=== PATIENT | female | born 1990 | race Caucasian/White ===

== ENCOUNTER 2017-10-23 17:25 | Emergency (ER) | payer BC | END 2017-10-23 17:47 | disposition left against medical advice (07) | LOC: JD.ED 17:25 | DX: Z53.21 Procedure and treatment not carried out due to patient leaving prior to being seen by health care provider (principal) ==

== ENCOUNTER 2018-08-29 15:28 | Inpatient (IN) | payer BC ==
[2018-08-29] MEDS ORDERED: Ondansetron 4 MG/2 ML SDV IVPUSH PRN ×2 (15:37→16:52)
[2018-08-29] MEDS ORDERED: Nalbuphine 20 MG/ML 1 ML Syringe IVPUSH PRN (15:37)
[2018-08-29] MEDS ORDERED: Sodium Chloride 0.9% 10 ML Syringe FLUSH PRN (15:37)
[2018-08-29] MEDS ORDERED: Oxytocin/Lactated Ringers 10 UNIT/1,000 ML BAG IV SCH ×2 (15:45)
--- NOTE | 2018-08-29 16:13 | PCM.LDHP ---
L&D History of Present Illness - General Date of Service: 08/29/18 Admit Problem/Dx: Patient Status Order with Admit Dx/Problem 08/29/18 15:38 Patient Status [ADT] Routine Admission Diagnosis/Problem Admission Diagnosis/Problem High risk Source of Information: Patient History Limitations: Reports: No Limitations - History of Present Illness Introduction:: Patient is a 28 y/o at 38 4/7 wks who presents for IOL due to findings of growth restriction on MFM US evaluation today. 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 Doing well currently. No significant contractions. 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: : 2 Para: 1 LMP (Approximate): Psychiatric History: Reports: Anxiety - Past Surgical History HEENT Surgical History: Reports: Myringotomy w Tube(s), Oral Surgery (tooth extraction) Social & Family History - Tobacco Use Smoking Status *Q: Current Every Day Smoker - Alcohol Use Alcohol Use History: No - Recreational Drug Use Recreational Drug Use: No H&P Review of Systems - Review of Systems: Review Of Systems: See Below General: Reports: No Symptoms Pulmonary: Reports: No Symptoms Cardiovascular: Reports: No Symptoms Gastrointestinal: Reports: No Symptoms Genitourinary: Reports: No Symptoms Musculoskeletal: Reports: No Symptoms Psychiatric: Reports: No Symptoms L&D Exam - Exam Exam: See Below - OB Specific Contraction Intensity: Mild Movement: Active Heart Tones: Present Heart Tones per Min: 135 Heart Rate (FHR) Variability: Moderate (6-25 bmp) Presentation: Vertex - Frankel Score Frankel Score Cervix Position: Anterior Frankel Score Consistency: Soft Frankel Score Effacement: >80% Fraknel Score Dilation: 3-4 cm Frankel Score 's Station: +1, +2 Frankel Score Total: 12 - Exam General: Alert, Oriented, Cooperative Lungs: Clear to Auscultation, Normal Respiratory Effort Cardiovascular: Regular Rate, Regular Rhythm GI/Abdominal Exam: Soft, Non-Tender Genitourinary: Normal external exam Extremities: Normal Inspection Skin: Warm, Dry, Intact - Patient Data Lab Results Last 24 hrs: Laboratory Results - last 24 hr 08/29/18 Range/Units 15:49 WBC 8.05 (3.98-10.04) K/mm3 RBC 4.53 (3.98-5.22) M/mm3 Hgb 13.6 (11.2-15.7) gm/L Hct 39.8 (34.1-44.9) % MCV 87.9 (79.4-94.8) fl MCH 30.0 (25.6-32.2) pg MCHC 34.2 (32.2-35.5) g/dl RDW Std Deviation 42.0 (36.4-46.3) fL Plt Count 232 (182-369) K/mm3 MPV 9.3 L (9.4-12.3) fl Result Diagrams: 08/29/18 15:49 - Problem List (1) 38 weeks gestation of SNOMED Code(s): 47413293 ICD Code: Z3A.38 - 38 WEEKS GESTATION OF Status: Acute Current Visit: Yes (2) IUGR (intrauterine growth restriction) SNOMED Code(s): 13991386 ICD Code: FAD2052 - Status: Acute Current Visit: Yes (3) complicated by subutex maintenance, antepartum SNOMED Code(s): 51300632 ICD Code: O99.320 - DRUG USE COMPLICATING , UNSPECIFIED TRIMESTER; F11.20 - OPIOID DEPENDENCE, UNCOMPLICATED Status: Acute Current Visit: Yes Problem List Initiated/Reviewed/Updated: Yes Orders Last 24hrs: Active Orders 24 hr Category Date Time Status Patient Status [ADT] Routine ADT 08/29/18 15:38 Active Activity as Tolerated [RC] PFP Care 08/29/18 15:38 Active Communication Order [RC] ASDIRECTED Care 08/29/18 15:38 Active Heart Tones [RC] ASDIRECTED Care 08/29/18 15:38 Active Non Stress Test [RC] PER UNIT ROUTINE Care 08/29/18 15:38 Active Notify Provider [RC] PFP Care 08/29/18 15:38 Active Notify Provider [RC] PRN Care 08/29/18 15:38 Active Peripheral IV Care [RC] . DIRECTED Care 08/29/18 15:38 Active Vital Signs [RC] PER UNIT ROUTINE Care 08/29/18 15:38 Active Regular Diet [DIET] Diet 08/29/18 Dinner Active RAPID PLASMA REAGIN,RPR [CHEM] Routine Lab 08/29/18 15:49 Received TYPE AND SCREEN [BBK] Stat Lab 08/29/18 15:49 Received Lactated Ringers [Ringers, Lactated] 1,000 ml Med 08/29/18 15:45 Pending IV ASDIRECTED Nalbuphine [Nubain] Med 08/29/18 15:37 Ordered 10 mg IVPUSH Q2H PRN Ondansetron [Zofran] Med 08/29/18 15:37 Ordered 4 mg IVPUSH Q4H PRN Oxytocin/Lactated Ringers [Pitocin in LR 10 Units/1,000 Med 08/29/18 15:45 Ordered ML] 10 unit in 1,000 ml IV .CONTINUOUS Oxytocin/Lactated Ringers [Pitocin in LR 10 Units/1,000 Med 08/29/18 15:45 Ordered ML] 10 unit in 1,000 ml IV TITRATE Sodium Chloride 0.9% [Saline Flush] Med 08/29/18 15:37 Ordered 10 ml FLUSH ASDIRECTED PRN Electronic Heart Tones Ext w TOCO [WOMSER] Oth 08/29/18 15:38 Ordered Routine Electronic Heart Tones Internal [WOMSER] Per Unit Oth 08/29/18 15:38 Ordered Routine Peripheral IV Insertion Adult [OM.PC] Routine Oth 08/29/18 15:38 Ordered Resuscitation Status Routine Resus Stat 08/29/18 15:37 Ordered Medication Orders Lactated Ringer's (Ringers, Lactated) 1,000 mls @ 100 mls/hr IV ASDIRECTED CHERYL Oxytocin/Lactated Ringer's (Pitocin In Lr 10 Units/1,000 Ml) 10 unit in 1,000 mls @ 500 mls/hr IV .CONTINUOUS CHERYL Oxytocin/Lactated Ringer's (Pitocin In Lr 10 Units/1,000 Ml) 10 unit in 1,000 mls @ 12 mls/hr IV TITRATE CHERYL; Protocol Nalbuphine HCl (Nubain) 10 mg IVPUSH Q2H PRN PRN Reason: pain Ondansetron HCl (Zofran) 4 mg IVPUSH Q4H PRN PRN Reason: Nausea/Vomiting Sodium Chloride (Saline Flush) 10 ml FLUSH ASDIRECTED PRN PRN Reason: Keep Vein Open Assessment/Plan Comment:: 28 y/o at 38 4/7 wks presents for IOL for IUGR * Labs * AROM and Pitocin for IOL * GBS negative, no need for antibiotics * Pain management per patient preference * Anticipate * Will make Peds team aware of maternal subutex use
[2018-08-29] MEDS: Lactated Ringers 1,000 ML IV SCH ×2 (16:38→17:36)
[2018-08-29] MEDS ORDERED: ePHEDrine 50 MG/ML SDV IVPUSH PRN (16:52)
[2018-08-29] MEDS ORDERED: diphenhydrAMINE 50 MG/ML SDV IVPUSH PRN (16:52)
[2018-08-29] MEDS ORDERED: fentaNYL 100 MCG/2 ML SDV EPIDUR PRN (16:52)
[2018-08-29] MEDS ORDERED: fentaNYL/Bupivacaine-NS 2 MCG/ML-0.125%/PF 100 ML Bag EP SCH ×2 (17:00→17:15)
[2018-08-29] MEDS ORDERED: Bupivacaine 0.25% 10 ML SDV ONE (18:00)
[2018-08-29] MEDS ORDERED: Lidocaine 1.5% with EPINEPHrine 1:200,000 5 ML Amp ONE (18:00)
--- NOTE | 2018-08-29 20:06 | PCM.PNLD ---
Labor Progress Note - VS & Meds Vital Signs: Last Vital Signs Temp 36.6 C 08/29/18 15:38 Pulse 98 08/29/18 15:38 Resp 18 08/29/18 15:38 BP 130/80 08/29/18 15:38 Pulse Ox 100 08/29/18 15:38 Active Medications: Current Medications Diphenhydramine HCl (Benadryl) 25 mg IVPUSH Q6H PRN PRN Reason: Pruritis Ephedrine Sulfate (Ephedrine Sulfate) 5 mg IVPUSH ASDIRECTED PRN PRN Reason: Hypotension Fentanyl (Sublimaze) 100 mcg EPIDUR Q3H PRN PRN Reason: Pain Last Admin: 08/29/18 17:31 Dose: 100 mcg Fentanyl/Bupivacaine HCl (Bmwrcdha-Ezruu-Vg 2 Mcg/Ml-0.125%) 100 ml EP ASDIRECTED CHERYL Last Admin: 08/29/18 17:31 Dose: 100 ml Lactated Ringer's (Ringers, Lactated) 1,000 mls @ 100 mls/hr IV ASDIRECTED CHERYL Last Admin: 08/29/18 17:36 Dose: 100 mls/hr Oxytocin/Lactated Ringer's (Pitocin In Lr 10 Units/1,000 Ml) 10 unit in 1,000 mls @ 500 mls/hr IV .CONTINUOUS CHERYL Oxytocin/Lactated Ringer's (Pitocin In Lr 10 Units/1,000 Ml) 10 unit in 1,000 mls @ 12 mls/hr IV TITRATE CHERYL; Protocol Last Titration: 08/29/18 18:34 Dose: 4 munits/min, 24 mls/hr Nalbuphine HCl (Nubain) 10 mg IVPUSH Q2H PRN PRN Reason: pain Ondansetron HCl (Zofran) 4 mg IVPUSH Q4H PRN PRN Reason: Nausea/Vomiting Ondansetron HCl (Zofran) 4 mg IVPUSH ONETIME PRN PRN Reason: Nausea/Vomiting Sodium Chloride (Saline Flush) 10 ml FLUSH ASDIRECTED PRN PRN Reason: Keep Vein Open Discontinued Medications Fentanyl/Bupivacaine HCl (Afwvqcwr-Enbwu-Pl 2 Mcg/Ml-0.125%) 100 ml EP ASDIRECTED CHERYL - Uterine Contractions Uterine Monitoring Mode: External [place] Contraction Intensity: Moderate Uterine Resting Tone: Soft - Monitoring Monitor Mode: External Ultrasound Heart Rate (FHR) Baseline: 135 Heart Rate (FHR) Variability: Moderate (6-25 bmp) Accelerations: Present, 15x15 Decelerations: None Strip Review: Category I - Vaginal Exam Dilation (cm): 5 Effacement (Percent): 90 Station: 1 Cervical Position: Anterior - Labor Progress (Free Text) Labor Progress: Doing well. Comfortable with epidural. Pitocin at 4. Will continue to increase per protocol
[2018-08-29] MEDS ORDERED: Oxytocin 10 Units/1 ML SDV ONE (22:36)
[2018-08-29] MEDS ORDERED: Misoprostol 200 MCG Tab ONE (22:36)
[2018-08-29] MEDS ORDERED: ceFAZolin 1 GM Vial IM ONE (22:44)
[2018-08-29] MEDS ORDERED: Misoprostol 200 MCG Tab PO STA (22:44)
--- NOTE | 2018-08-29 22:47 | PCM.DEL ---
L & D Note - General Info Date of Service: 08/29/18 - Delivery Note Labor: Induced by ARM, Induced by Oxytocin Delivery Outcome: Livebirth Infant Delivery Method: Spontaneous Vaginal Delivery-Single Infant Delivery Mode: Spontaneous Presentation: Right Occiput Anterior (KEYONNA) Nuchal Cord: None Anesthesia Type: Epidural Amniotic Fluid Description: Clear Episiotomy Type: None Laceration: Periurethral Suture type: Vicryl Suture size: 3-0 Placenta: Intact, Manual Removal Cord: 3 Vessels Estimated Blood Loss: 350 : Bulb Syringe, Stimulated, Warmed, [place] Used, Warmer Used Delivery Comments (Free Text/Narrative):: Patient found to be complete and began pushing. With maternal pushing effort head delivered from an KEYONNA presentation. No nuchal cord present. With gentle downward traction the shoulder and body delivered. Infant placed on maternal abdomen. Cord clamped and cut. Cord blood obtained. Placenta given 30 minutes but did not show any sign of release. Pitocin discontinued ( had been started after delivery of infant) and hand inserted into the uterus to the level of the fundus. With care plane found between uterus and placenta. Adherent area noted at very top of fundus. This was able to be freed and placenta then removed. Inspection showed it to be intact and two further passes into the uterus confirmed no residual membranes or placenta tissue. During this process IV was lost. Patient given IM pitocin and buccal cytotec to aid in uterine tone. Also given dose of IM ancef. Inspection of the perineum showed a left periurethral tear which was repaired with a running 3-0 vicryl. - General Info Date of Service: 08/30/18 - Patient Data Vitals - Most Recent: Last Vital Signs Temp 36.6 C 08/29/18 15:38 Pulse 98 08/29/18 15:38 Resp 18 08/29/18 15:38 BP 130/80 08/29/18 15:38 Pulse Ox 100 08/29/18 15:38 Weight - Most Recent: 66.179 kg Lab Results Last 24 Hours: Laboratory Results - last 24 hr 08/29/18 08/29/18 Range/Units 15:49 15:49 WBC 8.05 (3.98-10.04) K/mm3 RBC 4.53 (3.98-5.22) M/mm3 Hgb 13.6 (11.2-15.7) gm/L Hct 39.8 (34.1-44.9) % MCV 87.9 (79.4-94.8) fl MCH 30.0 (25.6-32.2) pg MCHC 34.2 (32.2-35.5) g/dl RDW Std Deviation 42.0 (36.4-46.3) fL Plt Count 232 (182-369) K/mm3 MPV 9.3 L (9.4-12.3) fl Blood Type O POSITIVE Gel Antibody Screen Negative Med Orders - Current: Current Medications Cefazolin Sodium (Ancef) 1 gm IM ONETIME ONE Stop: 08/29/18 22:45 Diphenhydramine HCl (Benadryl) 25 mg IVPUSH Q6H PRN PRN Reason: Pruritis Ephedrine Sulfate (Ephedrine Sulfate) 5 mg IVPUSH ASDIRECTED PRN PRN Reason: Hypotension Fentanyl (Sublimaze) 100 mcg EPIDUR Q3H PRN PRN Reason: Pain Last Admin: 08/29/18 17:31 Dose: 100 mcg Fentanyl/Bupivacaine HCl (Rxkhgbfq-Jrhzg-Ss 2 Mcg/Ml-0.125%) 100 ml EP ASDIRECTED CHERYL Last Admin: 08/29/18 17:31 Dose: 100 ml Lactated Ringer's (Ringers, Lactated) 1,000 mls @ 100 mls/hr IV ASDIRECTED CHERYL Last Admin: 08/29/18 17:36 Dose: 100 mls/hr Oxytocin/Lactated Ringer's (Pitocin In Lr 10 Units/1,000 Ml) 10 unit in 1,000 mls @ 500 mls/hr IV .CONTINUOUS CHERYL Oxytocin/Lactated Ringer's (Pitocin In Lr 10 Units/1,000 Ml) 10 unit in 1,000 mls @ 12 mls/hr IV TITRATE CHERYL; Protocol Last Titration: 08/29/18 18:34 Dose: 4 munits/min, 24 mls/hr Misoprostol (Cytotec) 600 mcg PO NOW STA Stop: 08/29/18 22:45 Nalbuphine HCl (Nubain) 10 mg IVPUSH Q2H PRN PRN Reason: pain Ondansetron HCl (Zofran) 4 mg IVPUSH Q4H PRN PRN Reason: Nausea/Vomiting Ondansetron HCl (Zofran) 4 mg IVPUSH ONETIME PRN PRN Reason: Nausea/Vomiting Sodium Chloride (Saline Flush) 10 ml FLUSH ASDIRECTED PRN PRN Reason: Keep Vein Open Discontinued Medications Fentanyl/Bupivacaine HCl (Uriuspry-Gblqx-Pv 2 Mcg/Ml-0.125%) 100 ml EP ASDIRECTED CHERYL Misoprostol (Cytotec) Confirm Administered Dose 200 mcg .ROUTE .STK-MED ONE Stop: 08/29/18 22:37 Oxytocin (Pitocin) Confirm Administered Dose 10 unit .ROUTE .STK-MED ONE Stop: 08/29/18 22:37 - Problem List & Annotations (1) 38 weeks gestation of SNOMED Code(s): 11634421 Code(s): Z3A.38 - 38 WEEKS GESTATION OF Status: Acute Current Visit: Yes (2) IUGR (intrauterine growth restriction) SNOMED Code(s): 14537760 Code(s): LUH4847 - Status: Acute Current Visit: Yes (3) complicated by subutex maintenance, antepartum SNOMED Code(s): 57646400 Code(s): O99.320 - DRUG USE COMPLICATING , UNSPECIFIED TRIMESTER; F11.20 - OPIOID DEPENDENCE, UNCOMPLICATED Status: Acute Current Visit: Yes - Problem List Review Problem List Initiated/Reviewed/Updated: Yes - My Orders Last 24 Hours: My Active Orders 08/29/18 15:37 Nalbuphine [Nubain] 10 mg IVPUSH Q2H PRN Ondansetron [Zofran] 4 mg IVPUSH Q4H PRN Sodium Chloride 0.9% [Saline Flush] 10 ml FLUSH ASDIRECTED PRN Resuscitation Status Routine 08/29/18 15:38 Patient Status [ADT] Routine Activity as Tolerated [RC] PFP Communication Order [RC] ASDIRECTED Heart Tones [RC] ASDIRECTED Notify Provider [RC] PFP Notify Provider [RC] PRN Peripheral IV Care [RC] . DIRECTED Vital Signs [RC] PER UNIT ROUTINE Electronic Heart Tones Ext w TOCO [WOMSER] Routine Electronic Heart Tones Internal [WOMSER] Per Unit Routine Peripheral IV Insertion Adult [OM.PC] Routine 08/29/18 15:45 Lactated Ringers [Ringers, Lactated] 1,000 ml IV ASDIRECTED Oxytocin/Lactated Ringers [Pitocin in LR 10 Units/1,000 ML] 10 unit in 1,000 ml IV .CONTINUOUS Oxytocin/Lactated Ringers [Pitocin in LR 10 Units/1,000 ML] 10 unit in 1,000 ml IV TITRATE 08/29/18 15:49 RAPID PLASMA REAGIN,RPR [CHEM] Routine 08/29/18 22:44 ceFAZolin [Ancef] 1 gm IM ONETIME ONE miSOPROStol [Cytotec] 600 mcg PO NOW STA 08/29/18 Dinner Regular Diet [DIET] - Assessment Assessment:: 28 y/o G2 now P2002 PPD#0 from at 38 4/7 wks - Plan Plan:: * Routine cares * Breast feeding * Continue home subutex * Discharge home in 2 days
[2018-08-30] MEDS ORDERED: Benzocaine/Menthol 20%-0.5% Spray 56 GM Canister TOP PRN (00:29)
[2018-08-30] MEDS ORDERED: Witch Hazel Medicated Pads 100/Jar TOP PRN (00:29)
[2018-08-30] MEDS: Ibuprofen 600 MG Tab PO PRN ×3 (02:15→18:45)
[2018-08-30] MEDS ORDERED: Acetaminophen 325 MG Tab PO PRN (07:05)
--- NOTE | 2018-08-30 07:07 | PCM.PNPP ---
- General Info Date of Service: 08/30/18 Functional Status: Reports: Pain Controlled, Tolerating Diet, Ambulating, Urinating - Review of Systems General: Reports: No Symptoms Pulmonary: Reports: No Symptoms Cardiovascular: Reports: No Symptoms Gastrointestinal: Reports: No Symptoms Genitourinary: Reports: No Symptoms Musculoskeletal: Reports: No Symptoms Neurological: Reports: No Symptoms - General Info Date of Service: 08/30/18 - Patient Data Vital Signs - Most Recent: Last Vital Signs Temp 37.1 C 08/30/18 04:00 Pulse 68 08/30/18 04:00 Resp 15 08/30/18 04:00 BP 120/68 08/30/18 04:00 Pulse Ox 99 08/30/18 04:00 Weight - Most Recent: 66.179 kg Lab Results - Last 24 Hours: Laboratory Results - last 24 hr 08/29/18 08/29/18 Range/Units 15:49 15:49 WBC 8.05 (3.98-10.04) K/mm3 RBC 4.53 (3.98-5.22) M/mm3 Hgb 13.6 (11.2-15.7) gm/L Hct 39.8 (34.1-44.9) % MCV 87.9 (79.4-94.8) fl MCH 30.0 (25.6-32.2) pg MCHC 34.2 (32.2-35.5) g/dl RDW Std Deviation 42.0 (36.4-46.3) fL Plt Count 232 (182-369) K/mm3 MPV 9.3 L (9.4-12.3) fl Blood Type O POSITIVE Gel Antibody Screen Negative Med Orders - Current: Current Medications Acetaminophen (Tylenol) 650 mg PO Q4H PRN PRN Reason: Pain Benzocaine/Menthol (Dermoplast Pain Relief [place]) 0 gm TOP ASDIRECTED PRN PRN Reason: Pain Last Admin: 08/30/18 01:38 Dose: 1 applic Ibuprofen (Motrin) 600 mg PO Q4H PRN PRN Reason: Pain Last Admin: 08/30/18 02:15 Dose: 600 mg Witch Jayne (Tucks) 1 pad TOP ASDIRECTED PRN PRN Reason: Pain Last Admin: 08/30/18 01:38 Dose: 1 applic Discontinued Medications Cefazolin Sodium (Ancef) 1 gm IM ONETIME ONE Stop: 08/29/18 22:45 Last Admin: 08/30/18 01:36 Dose: 1 gm Diphenhydramine HCl (Benadryl) 25 mg IVPUSH Q6H PRN PRN Reason: Pruritis Ephedrine Sulfate (Ephedrine Sulfate) 5 mg IVPUSH ASDIRECTED PRN PRN Reason: Hypotension Fentanyl (Sublimaze) 100 mcg EPIDUR Q3H PRN PRN Reason: Pain Last Admin: 08/29/18 17:31 Dose: 100 mcg Fentanyl/Bupivacaine HCl (Ytfxyzfk-Kjuak-Go 2 Mcg/Ml-0.125%) 100 ml EP ASDIRECTED CHERYL Fentanyl/Bupivacaine HCl (Jjpniwdu-Gbdso-Yc 2 Mcg/Ml-0.125%) 100 ml EP ASDIRECTED CHERYL Last Admin: 08/29/18 17:31 Dose: 100 ml Lactated Ringer's (Ringers, Lactated) 1,000 mls @ 100 mls/hr IV ASDIRECTED CHERYL Last Admin: 08/29/18 17:36 Dose: 100 mls/hr Oxytocin/Lactated Ringer's (Pitocin In Lr 10 Units/1,000 Ml) 10 unit in 1,000 mls @ 500 mls/hr IV .CONTINUOUS CHERYL Oxytocin/Lactated Ringer's (Pitocin In Lr 10 Units/1,000 Ml) 10 unit in 1,000 mls @ 12 mls/hr IV TITRATE CHERYL; Protocol Last Titration: 08/29/18 18:34 Dose: 4 munits/min, 24 mls/hr Misoprostol (Cytotec) Confirm Administered Dose 200 mcg .ROUTE .STK-MED ONE Stop: 08/29/18 22:37 Misoprostol (Cytotec) 600 mcg PO NOW STA Stop: 08/29/18 22:45 Last Admin: 08/29/18 23:00 Dose: 600 mcg Nalbuphine HCl (Nubain) 10 mg IVPUSH Q2H PRN PRN Reason: pain Ondansetron HCl (Zofran) 4 mg IVPUSH Q4H PRN PRN Reason: Nausea/Vomiting Ondansetron HCl (Zofran) 4 mg IVPUSH ONETIME PRN PRN Reason: Nausea/Vomiting Oxytocin (Pitocin) Confirm Administered Dose 10 unit .ROUTE .STK-MED ONE Stop: 08/29/18 22:37 Last Admin: 08/29/18 23:00 Dose: 10 unit Sodium Chloride (Saline Flush) 10 ml FLUSH ASDIRECTED PRN PRN Reason: Keep Vein Open - Interaction Infant Disposition, : [place] to Nursery Feeding: Attempted ; Nursed Fair/Poor Support Person: - Recovery Exam Fundal Tone: Firm Fundal Level: 1 Fingerbreadths Below Umbilicus Fundal Placement: Midline Lochia Amount: Scant Perineum Description: Intact, Minimal Bruising/Swelling Episiotomy/Laceration: Approximated Bladder Status: Voiding Urinary Elimination: Voided - Exam General: Alert, Oriented, Cooperative GI/Abdominal Exam: Soft, Non-Tender Extremities: Normal Inspection Skin: Warm, Dry, Intact - Problem List & Annotations (1) 38 weeks gestation of SNOMED Code(s): 41740710 Code(s): Z3A.38 - 38 WEEKS GESTATION OF Status: Acute Current Visit: Yes (2) IUGR (intrauterine growth restriction) SNOMED Code(s): 14232909 Code(s): WZB8170 - Status: Acute Current Visit: Yes (3) complicated by subutex maintenance, antepartum SNOMED Code(s): 91962007 Code(s): O99.320 - DRUG USE COMPLICATING , UNSPECIFIED TRIMESTER; F11.20 - OPIOID DEPENDENCE, UNCOMPLICATED Status: Acute Current Visit: Yes (4) Vaginal delivery SNOMED Code(s): 086549003 Code(s): O80 - ENCOUNTER FOR FULL-TERM UNCOMPLICATED DELIVERY Status: Acute Current Visit: Yes (5) Retained placenta SNOMED Code(s): 398787146 Code(s): O73.0 - RETAINED PLACENTA WITHOUT HEMORRHAGE Status: Acute Current Visit: Yes Qualifiers: Retained placenta detail: complete placenta Qualified Code(s): O73.0 - Retained placenta without hemorrhage - Problem List Review Problem List Initiated/Reviewed/Updated: Yes - My Orders Last 24 Hours: My Active Orders 08/29/18 15:37 Resuscitation Status Routine 08/29/18 15:49 RAPID PLASMA REAGIN,RPR [CHEM] Routine 08/29/18 Dinner Regular Diet [DIET] 08/30/18 00:29 Benzocaine/Menthol [Dermoplast Pain Relief [place]] See Dose Instructions TOP ASDIRECTED PRN Witch Jayne [Tucks] 1 pad TOP ASDIRECTED PRN 08/30/18 01:44 Activity as Tolerated [RC] PER UNIT ROUTINE Vital Signs [RC] Q4HR Assess Lochia [WOMSER] Per Unit Routine Assess Uterine Involution [WOMSER] Per Unit Routine Breast Pump [WOMSER] Per Unit Routine Medication Administration Instruction [OM.PC] Routine Perineal Care [OM.PC] Per Unit Routine Sitz Bath [OM.PC] Per Unit Routine 08/30/18 01:45 Heat Therapy [OM.PC] PRN 08/30/18 02:03 Ibuprofen [Motrin] 600 mg PO Q4H PRN 08/30/18 07:05 Acetaminophen [Tylenol] 650 mg PO Q4H PRN 08/30/18 23:00 Patient Status [ADT] Routine 08/31/18 01:45 Heat Therapy [OM.PC] PRN - Assessment Assessment:: 28 y/o G2 now P2002 PPD#1 from at 38 4/7 wks - Plan Plan:: * Routine cares * Breast feeding * Continue home subutex * Discharge home tomorrow
--- NOTE | 2018-08-30 08:48 | PCM48HPAN ---
Post Anesthesia Note - EVALUATION WITHIN 48HRS OF ANESTHETIC Vital Signs in Normal Range: Yes Patient Participated in Evaluation: Yes Respiratory Function Stable: Yes Airway Patent: Yes Cardiovascular Function Stable: Yes Hydration Status Stable: Yes Pain Control Satisfactory: Yes Nausea and Vomiting Control Satisfactory: Yes Mental Status Recovered: Yes Pulse Rate: 85 SaO2: 99 Resp Rate: 15 Blood Pressure: 120/68
[2018-08-30] MEDS ORDERED: Lanolin 100% Cream 7 GM Tube TOP PRN (20:56)
--- NOTE | 2018-08-31 01:49 | PCM.DCSUM1 ---
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, UNCOMPLICATED Status: Acute Current Visit: Yes (4) Vaginal delivery SNOMED Code(s): 160879825 ICD Code: O80 - ENCOUNTER FOR FULL-TERM UNCOMPLICATED DELIVERY Status: Acute Current Visit: Yes (5) Retained placenta SNOMED Code(s): 870921774 ICD Code: O73.0 - RETAINED PLACENTA WITHOUT HEMORRHAGE Status: Acute Current Visit: Yes Qualifiers: Retained placenta detail: complete placenta Qualified Code(s): O73.0 - Retained placenta without hemorrhage - Patient Summary/Data Complications: None Consults: None Recommended Follow-up Testing/Procedures: Follow up in 3-6 weeks for check Hospital Course: 28 y/o presented at 38 4/7 wks for IOL due to suspected IUGR. otherwise notable for maternal use of subutex. Induction done with AROM and pitocin augmentation. Patient did well and had an uncomplicated vaginal delivery, however, she did have a retained placenta. After 30 minutes this was manually removed. Her bleeding was appropriate in following days and she was otherwise doing well. She was discharged on PPD#2 - Patient Instructions Diet: Regular Diet as Tolerated Activity: As Tolerated Activity, Other: Pelvic Rest for 6 weeks Driving: May Drive Today Showering/Bathing: May Shower Showering/Bathing, Other: May Bathe Notify Provider of: Fever, Increased Pain, Swelling and Redness, Drainage, Nausea and/or Vomiting - Discharge Plan *PRESCRIPTION DRUG MONITORING PROGRAM REVIEWED*: Not Applicable *COPY OF PRESCRIPTION DRUG MONITORING REPORT IN PATIENT FABI: Not Applicable Home Medications: Home Meds Buprenorphine HCl 4 mg SL 5XDAY 08/29/18 [History] Vit No.78/Iron/Fa [Prenatabs FA] 1 each PO DAILY 08/29/18 [History] Ibuprofen [Motrin] 600 mg PO Q4H PRN tablet 08/31/18 [Rx] Patient Handouts: Steps to Quit Smoking Referrals: Jess Wasserman MD [Primary Care Provider] - - Discharge Summary/Plan Comment DC Time >30 min.: No - Patient Data Vitals - Most Recent: Last Vital Signs Temp 36.6 C 08/30/18 12:35 Pulse 56 L 08/30/18 12:35 Resp 16 08/30/18 12:35 BP 117/76 08/30/18 12:35 Pulse Ox 100 08/30/18 12:35 Weight - Most Recent: 66.179 kg Lab Results - Last 24 hrs: Laboratory Results - last 24 hr 08/29/18 Range/Units 15:49 RPR Non-reactive (NONREACTIVE) Med Orders - Current: Current Medications Acetaminophen (Tylenol) 650 mg PO Q4H PRN PRN Reason: Pain Benzocaine/Menthol (Dermoplast Pain Relief [place]) 0 gm TOP ASDIRECTED PRN PRN Reason: Pain Last Admin: 08/30/18 01:38 Dose: 1 applic Emollient Ointment (Lansinoh Hpa) 0 gm TOP ASDIRECTED PRN PRN Reason: Pain Last Admin: 08/30/18 21:11 Dose: 1 applic Ibuprofen (Motrin) 600 mg PO Q4H PRN PRN Reason: Pain Last Admin: 08/30/18 18:45 Dose: 600 mg Witch Jayne (Tucks) 1 pad TOP ASDIRECTED PRN PRN Reason: Pain Last Admin: 08/30/18 01:38 Dose: 1 applic Discontinued Medications Cefazolin Sodium (Ancef) 1 gm IM ONETIME ONE Stop: 08/29/18 22:45 Last Admin: 08/30/18 01:36 Dose: 1 gm Diphenhydramine HCl (Benadryl) 25 mg IVPUSH Q6H PRN PRN Reason: Pruritis Ephedrine Sulfate (Ephedrine Sulfate) 5 mg IVPUSH ASDIRECTED PRN PRN Reason: Hypotension Fentanyl (Sublimaze) 100 mcg EPIDUR Q3H PRN PRN Reason: Pain Last Admin: 08/29/18 17:31 Dose: 100 mcg Fentanyl/Bupivacaine HCl (Snvrvozz-Qajxd-Ry 2 Mcg/Ml-0.125%) 100 ml EP ASDIRECTED CHERYL Fentanyl/Bupivacaine HCl (Msqvruhl-Vycol-Cd 2 Mcg/Ml-0.125%) 100 ml EP ASDIRECTED CHERYL Last Admin: 08/29/18 17:31 Dose: 100 ml Lactated Ringer's (Ringers, Lactated) 1,000 mls @ 100 mls/hr IV ASDIRECTED CHERYL Last Admin: 08/29/18 17:36 Dose: 100 mls/hr Oxytocin/Lactated Ringer's (Pitocin In Lr 10 Units/1,000 Ml) 10 unit in 1,000 mls @ 500 mls/hr IV .CONTINUOUS CHERYL Oxytocin/Lactated Ringer's (Pitocin In Lr 10 Units/1,000 Ml) 10 unit in 1,000 mls @ 12 mls/hr IV TITRATE CHERYL; Protocol Last Titration: 08/29/18 18:34 Dose: 4 munits/min, 24 mls/hr Misoprostol (Cytotec) Confirm Administered Dose 200 mcg .ROUTE .[employer] ONE Stop: 08/29/18 22:37 Misoprostol (Cytotec) 600 mcg PO NOW STA Stop: 08/29/18 22:45 Last Admin: 08/29/18 23:00 Dose: 600 mcg Nalbuphine HCl (Nubain) 10 mg IVPUSH Q2H PRN PRN Reason: pain Ondansetron HCl (Zofran) 4 mg IVPUSH Q4H PRN PRN Reason: Nausea/Vomiting Ondansetron HCl (Zofran) 4 mg IVPUSH ONETIME PRN PRN Reason: Nausea/Vomiting Oxytocin (Pitocin) Confirm Administered Dose 10 unit .ROUTE .[employer] ONE Stop: 08/29/18 22:37 Last Admin: 08/29/18 23:00 Dose: 10 unit Sodium Chloride (Saline Flush) 10 ml FLUSH ASDIRECTED PRN PRN Reason: Keep Vein Open
--- NOTE | 2018-08-31 01:49 | PCM.PNPP ---
- General Info Date of Service: 08/31/18 Functional Status: Reports: Pain Controlled, Tolerating Diet, Ambulating, Urinating - Review of Systems General: Reports: No Symptoms Pulmonary: Reports: No Symptoms Cardiovascular: Reports: No Symptoms Gastrointestinal: Reports: No Symptoms Genitourinary: Reports: No Symptoms Musculoskeletal: Reports: No Symptoms Neurological: Reports: No Symptoms - Patient Data Vital Signs - Most Recent: Last Vital Signs Temp 36.6 C 08/30/18 12:35 Pulse 56 L 08/30/18 12:35 Resp 16 08/30/18 12:35 BP 117/76 08/30/18 12:35 Pulse Ox 100 08/30/18 12:35 Weight - Most Recent: 66.179 kg Lab Results - Last 24 Hours: Laboratory Results - last 24 hr 08/29/18 Range/Units 15:49 RPR Non-reactive (NONREACTIVE) Med Orders - Current: Current Medications Acetaminophen (Tylenol) 650 mg PO Q4H PRN PRN Reason: Pain Benzocaine/Menthol (Dermoplast Pain Relief [place]) 0 gm TOP ASDIRECTED PRN PRN Reason: Pain Last Admin: 08/30/18 01:38 Dose: 1 applic Emollient Ointment (Lansinoh Hpa) 0 gm TOP ASDIRECTED PRN PRN Reason: Pain Last Admin: 08/30/18 21:11 Dose: 1 applic Ibuprofen (Motrin) 600 mg PO Q4H PRN PRN Reason: Pain Last Admin: 08/30/18 18:45 Dose: 600 mg Witch Jayne (Tucks) 1 pad TOP ASDIRECTED PRN PRN Reason: Pain Last Admin: 08/30/18 01:38 Dose: 1 applic Discontinued Medications Cefazolin Sodium (Ancef) 1 gm IM ONETIME ONE Stop: 08/29/18 22:45 Last Admin: 08/30/18 01:36 Dose: 1 gm Diphenhydramine HCl (Benadryl) 25 mg IVPUSH Q6H PRN PRN Reason: Pruritis Ephedrine Sulfate (Ephedrine Sulfate) 5 mg IVPUSH ASDIRECTED PRN PRN Reason: Hypotension Fentanyl (Sublimaze) 100 mcg EPIDUR Q3H PRN PRN Reason: Pain Last Admin: 08/29/18 17:31 Dose: 100 mcg Fentanyl/Bupivacaine HCl (Abqskkyy-Cfhbg-Fc 2 Mcg/Ml-0.125%) 100 ml EP ASDIRECTED CHERYL Fentanyl/Bupivacaine HCl (Ryifqifh-Utgcu-Fy 2 Mcg/Ml-0.125%) 100 ml EP ASDIRECTED CHERYL Last Admin: 08/29/18 17:31 Dose: 100 ml Lactated Ringer's (Ringers, Lactated) 1,000 mls @ 100 mls/hr IV ASDIRECTED CHERYL Last Admin: 08/29/18 17:36 Dose: 100 mls/hr Oxytocin/Lactated Ringer's (Pitocin In Lr 10 Units/1,000 Ml) 10 unit in 1,000 mls @ 500 mls/hr IV .CONTINUOUS CHERYL Oxytocin/Lactated Ringer's (Pitocin In Lr 10 Units/1,000 Ml) 10 unit in 1,000 mls @ 12 mls/hr IV TITRATE CHERYL; Protocol Last Titration: 08/29/18 18:34 Dose: 4 munits/min, 24 mls/hr Misoprostol (Cytotec) Confirm Administered Dose 200 mcg .ROUTE .[facility] ONE Stop: 08/29/18 22:37 Misoprostol (Cytotec) 600 mcg PO NOW STA Stop: 08/29/18 22:45 Last Admin: 08/29/18 23:00 Dose: 600 mcg Nalbuphine HCl (Nubain) 10 mg IVPUSH Q2H PRN PRN Reason: pain Ondansetron HCl (Zofran) 4 mg IVPUSH Q4H PRN PRN Reason: Nausea/Vomiting Ondansetron HCl (Zofran) 4 mg IVPUSH ONETIME PRN PRN Reason: Nausea/Vomiting Oxytocin (Pitocin) Confirm Administered Dose 10 unit .ROUTE .[facility] ONE Stop: 08/29/18 22:37 Last Admin: 08/29/18 23:00 Dose: 10 unit Sodium Chloride (Saline Flush) 10 ml FLUSH ASDIRECTED PRN PRN Reason: Keep Vein Open - Infant Interaction Infant Disposition, : [place] to Nursery Infant Interaction: Holding Infant Infant Feeding: Breastfed ; Nursed Well Support Person: - Recovery Exam Fundal Tone: Firm Fundal Level: 1 Fingerbreadths Below Umbilicus Fundal Placement: Midline Lochia Amount: Scant Perineum Description: Intact, Minimal Bruising/Swelling Episiotomy/Laceration: Approximated Bladder Status: Voiding Urinary Elimination: Voided - Exam General: Alert, Oriented, Cooperative GI/Abdominal Exam: Soft, Non-Tender Extremities: Normal Inspection Skin: Warm, Dry, Intact - Problem List & Annotations (1) 38 weeks gestation of SNOMED Code(s): 45109099 Code(s): Z3A.38 - 38 WEEKS GESTATION OF Status: Acute Current Visit: Yes (2) IUGR (intrauterine growth restriction) SNOMED Code(s): 01005840 Code(s): JCJ7235 - Status: Acute Current Visit: Yes (3) complicated by subutex maintenance, antepartum SNOMED Code(s): 92859761 Code(s): O99.320 - DRUG USE COMPLICATING , UNSPECIFIED TRIMESTER; F11.20 - OPIOID DEPENDENCE, UNCOMPLICATED Status: Acute Current Visit: Yes (4) Vaginal delivery SNOMED Code(s): 756624163 Code(s): O80 - ENCOUNTER FOR FULL-TERM UNCOMPLICATED DELIVERY Status: Acute Current Visit: Yes (5) Retained placenta SNOMED Code(s): 888750874 Code(s): O73.0 - RETAINED PLACENTA WITHOUT HEMORRHAGE Status: Acute Current Visit: Yes Qualifiers: Retained placenta detail: complete placenta Qualified Code(s): O73.0 - Retained placenta without hemorrhage - Problem List Review Problem List Initiated/Reviewed/Updated: Yes - My Orders Last 24 Hours: My Active Orders 08/30/18 01:44 Activity as Tolerated [RC] PER UNIT ROUTINE Vital Signs [RC] Q8HR Assess Lochia [WOMSER] Per Unit Routine Assess Uterine Involution [WOMSER] Per Unit Routine Breast Pump [WOMSER] Per Unit Routine Medication Administration Instruction [OM.PC] Routine Perineal Care [OM.PC] Per Unit Routine Sitz Bath [OM.PC] Per Unit Routine 08/30/18 01:45 Heat Therapy [OM.PC] PRN 08/30/18 02:03 Ibuprofen [Motrin] 600 mg PO Q4H PRN 08/30/18 07:05 Acetaminophen [Tylenol] 650 mg PO Q4H PRN 08/30/18 20:56 Lanolin [Lansinoh HPA] 0 gm TOP ASDIRECTED PRN 08/30/18 23:00 Patient Status [ADT] Routine 08/31/18 01:45 Heat Therapy [OM.PC] PRN 08/31/18 01:48 Ready for Discharge [RC] PER UNIT ROUTINE - Assessment Assessment:: 28 y/o G2 now P2002 PPD#2 from at 38 4/7 wks - Plan Plan:: * Routine cares * Breast feeding * Continue home subutex * Discharge home today
[2018-08-31] MEDS: Ibuprofen 600 MG Tab PO PRN ×2 (05:13→13:08)
== END 2018-08-31 14:30 | disposition home or self-care (01) | DRG 541 ==
LOC: JD.OB 15:28 → OBSVTOIN 22:01 → JD.OB 22:01
PROVIDERS: ADMIT Obstetrics & Gynecology; ATTEND Obstetrics & Gynecology
PROC: 10907ZC Drainage of Amniotic Fluid, Therapeutic from Products of Conception, Via Natural or Artificial Opening (ICD-10-PCS; principal; 2018-08-29)
PROC: 10E0XZZ Delivery of Products of Conception, External Approach (ICD-10-PCS; principal; 2018-08-29)
PROC: 3E033VJ Introduction of Other Hormone into Peripheral Vein, Percutaneous Approach (ICD-10-PCS; principal; 2018-08-29)
PROC: 0UQMXZZ Repair Vulva, External Approach (ICD-10-PCS; principal; 2018-08-29)
PROC: 6A550ZT Pheresis of Cord Blood Stem Cells, Single (ICD-10-PCS; principal; 2018-08-29)
PROC: 10D17Z9 Manual Extraction of Products of Conception, Retained, Via Natural or Artificial Opening (ICD-10-PCS; principal; 2018-08-29)
PROC: 3E0R3BZ Introduction of Anesthetic Agent into Spinal Canal, Percutaneous Approach (ICD-10-PCS; 2018-08-29)
PROC: 00HU33Z Insertion of Infusion Device into Spinal Canal, Percutaneous Approach (ICD-10-PCS; 2018-08-29)
DX: O36.5930 Maternal care for other known or suspected poor fetal growth, third trimester, not applicable or unspecified (principal); O99.324 Drug use complicating childbirth; F11.20 Opioid dependence, uncomplicated; O73.1 Retained portions of placenta and membranes, without hemorrhage; Z3A.38 38 weeks gestation of pregnancy; Z37.0 Single live birth; O99.344 Other mental disorders complicating childbirth; F41.9 Anxiety disorder, unspecified; O99.334 Smoking (tobacco) complicating childbirth; F17.200 Nicotine dependence, unspecified, uncomplicated; Z79.899 Other long term (current) drug therapy; O71.82 Other specified trauma to perineum and vulva
CPT/HCPCS: 01967; 36415; 51702; 59025; 59409; 85027; 86592; 86850; 86900; 86901; A9270-GY; J0690; J2590; J3010; J3490; J7120

== ENCOUNTER 2018-09-06 16:53 | Emergency (ER) | payer BC ==
--- NOTE | 2018-09-06 17:33 | EDM.PDOC ---
<Danielle Anguiano - Last Filed: 09/06/18 17:39> ED HPI GENERAL MEDICAL PROBLEM - General Chief Complaint: Lower Extremity Injury/Pain Stated Complaint: L LEG SWOLLEN POST - POSS BLOOD CLOT Time Seen by Provider: 09/06/18 17:05 Source of Information: Reports: Patient, RN Notes Reviewed History Limitations: Reports: No Limitations - History of Present Illness INITIAL COMMENTS - FREE TEXT/NARRATIVE: Dorene is a 28 year old female who gave 8 days ago, who presents with left lower extremity swelling for the past few days. Patient states that she developed superficial varicosities to the left lower extremity though her , and that she was evaluated for DVT with US 2-3 months ago which was negative for any clot. She wore compression stockings through the remainder of her . She has since stopped wearing these since giving 8 days ago. She states that she noticed the swelling Wednesday while in the shower, and just felt that her ankle was more swollen. Wednesday while in the shower she felt like her lower left leg was more trunk like. She has no pain in the left leg, and has not noticed any acute color changes. She has no chest pain or shortness of breath. She denies any recent travel or long periods of immobilization. Patient states she had a headache on wednesday, and took about 800mg of ibuprofen. This has since resolved. She called her OB to tell her about the lower leg swelling and she told her to come to the ED for evaluation. - Related Data Allergies Allergy/AdvReac Type Severity Reaction Status Date / Time No Known Allergies Allergy Verified 08/29/18 16:32 Home Meds: Home Meds Buprenorphine HCl 4 mg SL DAY 08/29/18 [History] Vit No.78/Iron/Fa [Prenatabs FA] 1 each PO DAILY 08/29/18 [History] Ibuprofen [Motrin] 600 mg PO Q4H PRN tablet 08/31/18 [Rx] Past Medical History - Past Health History Medical/Surgical History: Denies Medical/Surgical History [employer] History: Reports: Psychiatric History: Reports: Anxiety - Past Surgical History HEENT Surgical History: Reports: Myringotomy w Tube(s), Oral Surgery Social & Family History - Family History Family Medical History: Noncontributory - Tobacco Use Smoking Status *Q: Current Every Day Smoker Years of Tobacco use: 10 Packs/Tins Daily: 0.3 - Caffeine Use Caffeine Use: Reports: Coffee, Soda - Recreational Drug Use Recreational Drug Use: Yes Drug Use in Last 12 Months: No Review of Systems - Review of Systems Review Of Systems: ROS reveals no pertinent complaints other than HPI. ED EXAM, GENERAL - Physical Exam Exam: See Below Exam Limited By: No Limitations General Appearance: Alert, WD/WN, No Apparent Distress Respiratory/Chest: No Respiratory Distress, Lungs Clear, Normal Breath Sounds Cardiovascular: Normal Peripheral Pulses, Regular Rate, Rhythm, No Edema, No Gallop Peripheral Pulses: 2+: Posterior Tibial (L) (obscured by edema), 4+: Radial (L) , Radial (R), Femoral (L), Femoral (R), Popliteal (L), Posterior Tibial (R), Dorsalis Pedis (L), Dorsalis Pedis (R) Extremities: Normal Range of Motion, Non-Tender, Normal Capillary Refill, Pedal Edema (left, minimal), Other (left lower extremity is warm. no pain with palpation. Patient has numerous blue-green varicosities and spider veins through the anterior and lateral side of the left lower extremity. ). No: Joint Swelling, Leg Pain, Mottled, Pallor, Redness Neurological: Alert, Oriented, CN II-XII Intact, Normal Cognition Psychiatric: Normal Affect, Normal Mood Skin Exam: Warm, Dry, Intact. No: Cool, Cyanosis, Pallor Course - Vital Signs Last Recorded V/S: Last Vital Signs Temp 97.6 F 09/06/18 17:03 Pulse 66 09/06/18 17:03 Resp 16 09/06/18 17:03 BP 114/71 09/06/18 17:03 Pulse Ox 100 09/06/18 17:03 - Re-Assessments/Exams Free Text/Narrative Re-Assessment/Exam: 09/06/18 17:39 I have low suspicion for a DVT, but being that this patient has a positive risk factor having given 8 days ago, we will go ahead and US the left lower extremity to rule this out. Patient is probably exhibiting some venous insufficiency, and will likely need to wear her compression stockings to prevent this lower leg swelling. This swelling also could have been exacerbated by vasodilation in the warm shower, and fluid retention due to recent NSAID use. Departure - Departure Disposition: Home, Self-Care 01 Clinical Impression: Left leg swelling - Discharge Information Referrals: PCP,None [Primary Care Provider] - Forms: ED Department Discharge Additional Instructions: elevate the leg as much as you are able to. Recommend using the compression stockings you have at home. Follow-up with PCP within 2 weeks if not much better. Please return to the ER should your symptoms change or worsen. <Breonna Eldridge - Last Filed: 09/06/18 20:19> ED HPI GENERAL MEDICAL PROBLEM - History of Present Illness INITIAL COMMENTS - FREE TEXT/NARRATIVE: I have seen the patient and agree with the HPI as documented by LEMUEL Day. Review of Systems - Review of Systems Review Of Systems: See Below Respiratory: Denies: Shortness of Breath Cardiovascular: Denies: Chest Pain Musculoskeletal: Denies: Leg Pain Skin: Reports: Other (swelling to the left leg, vericose and spider veins to the left leg) ED EXAM, GENERAL - Physical Exam Exam: See Below Exam Limited By: No Limitations General Appearance: Alert, WD/WN, No Apparent Distress Extremities: No: Michael's Sign Course - Radiology Interpretation Free Text/Narrative:: Left lower extremity deep venous ultrasound: Duplex and color flow imaging was obtained of the left common femoral, proximal greater saphenous, superficial femoral, popliteal, posterior tibial and peroneal veins. Right common femoral vein was also evaluated. Normal phasic flow, augmentation and compression is seen. Impression: 1. No evidence of deep venous thrombosis within the left lower extremity or within the right common femoral vein. - Re-Assessments/Exams Free Text/Narrative Re-Assessment/Exam: 09/06/18 19:10 I have seen the patient and agree with the HPI, ROS and PE as documented by LEMUEL Day ultrasound results reviewed. Recommendations given. Discharge instructions as documented. Departure - Departure Time of Disposition: 19:14 Condition: Fair - Discharge Information *PRESCRIPTION DRUG MONITORING PROGRAM REVIEWED*: No *COPY OF PRESCRIPTION DRUG MONITORING REPORT IN PATIENT FABI: No
--- NOTE | 2018-09-06 18:56 | US ---
Left lower extremity deep venous ultrasound: Duplex and color flow imaging was obtained of the left common femoral, proximal greater saphenous, superficial femoral, popliteal, posterior tibial and peroneal veins. Right common femoral vein was also evaluated. Normal phasic flow, augmentation and compression is seen. Impression: 1. No evidence of deep venous thrombosis within the left lower extremity or within the right common femoral vein. Diagnostic code #1
== END 2018-09-06 19:23 | disposition home or self-care (01) ==
LOC: JD.ED 16:53
DX: M79.89 Other specified soft tissue disorders (principal); F17.210 Nicotine dependence, cigarettes, uncomplicated
CPT/HCPCS: 93971-26-LT; 93971-LT; 99282; 99284-25